=== PATIENT | female | born 1995 | race Caucasian/White ===

== ENCOUNTER 2021-01-11 16:33 | Emergency (ER) | payer BC, SELFPAY ==
[2021-01-11 16:39] VITALS: BP 120/86; PULSE 126; RESP 18; TEMP 38.8; O2SAT 99
[2021-01-11 16:53] LABS: Basophils Absolute Auto 0.1 K/mm3 (0.0-0.1); Basophils Percent Auto 0.5 % (0.2-1.2); Eosinophils Percent Auto 0.2 % (0-4.4); Hematocrit 42.9 % (37.0-47.0); Hemoglobin 14.2 g/dL (12.0-15.0); Immature Granulocyte Absolute 0.05 K/mm3 (0.00-0.031); Immature Granulocyte Percent A 0.5 % (0-0.5); Lymphocytes Absolute Auto 1.27 K/mm3 (0.9-3.2); Lymphocytes Percent Auto 11.5 % (18.3-44.2); Mean Corpuscular HGB Conc 33.1 g/dl (32-36); Mean Corpuscular Hemoglobin 29.7 pg (26-34); Mean Corpuscular Volume 89.7 fl (80-100); Monocytes Absolute Auto 1.1 K/mm3 (0.1-0.6); Neutrophils Absolute Auto 8.6 K/mm3 (1.3-6.7); Neutrophils Percent Auto 77.3 % (45.5-73.1); Platelet Count Result 254 k/mm3 (150-375); Red Blood Count 4.78 M/mm3 (4.2-5.4); Red Cell Distribution Width 12.1 % (11.5-14.5); White Blood Count 11.1 K/mm3 (4.5-10.0)
[2021-01-11 17:05] LABS: Alanine Aminotransferase 17 U/L (4-35); Albumin Level 4.7 g/dL (3.5-5.1); Alkaline Phosphatase 65 U/L (38-126); Anion Gap 11 mmol/L (8-16); Aspartate Amino Transferase 22 U/L (14-36); Bilirubin,Total 0.5 mg/dL (0.2-1.3); Blood Urea Nitrogen 9 mg/dL (7-17); Calcium 9.3 mg/dL (8.4-10.2); Carbon Dioxide 22 mmol/L (22-30); Chloride 104 mmol/L (98-107); Estimated CRCL calculation 72 ml/min; Estimated Glomerular Filt Rate > 60; Glucose 94 mg/dL (65-105); Potassium 4.1 mmol/L (3.4-5.0); Sodium 137 mmol/L (137-145)
[2021-01-11 19:49] VITALS: BP 141/91; PULSE 125; TEMP 39.6; O2SAT 100
[2021-01-11 20:15] VITALS: RESP 16
[2021-01-11] MEDS: SODIUM CHLORIDE 0.9% IV 1,000 ML 999 ML IV CONT ×2 (20:15→22:30)
[2021-01-11 21:09] LABS: Lactic Acid Reflex 0.8 mmol/L (0.7-2.1)
--- NOTE | 2021-01-11 21:18 | ED.GENADULT ---
HPI - General Adult General Chief complaint: Fever Stated complaint: fever/chills/sp tick bite Time Seen by Provider: 01/11/21 19:47 Source: patient, family and RN notes reviewed Mode of arrival: ambulatory Limitations: no limitations History of Present Illness HPI narrative: Patient is a 25-year-old female who presents to emergency department for evaluation of fever chills body aches arthralgias and neck pain that began today patient felt fine yesterday patient notes the only possible cause might be a tick bite to the right johnson that was 3 weeks ago patient denies any other wounds sores or sources of illness or sick contacts notes that she is fully vaccinated for Covid. Patient has not taken anything for her symptoms. Patient is nontoxic-appearing in no distress upon arrival Related Data Allergies Allergy/AdvReac Type Severity Reaction Status Date / Time Sulfa (Sulfonamide Allergy Rash Verified 01/11/21 20:08 Antibiotics) Review of Systems Review of Systems: All systems reviewed & are unremarkable except as noted in HPI and below PMFSH Social History Social History (Updated 01/11/21 @ 21:19 by Tony Baldwin PA-C) Smoking status: Never smoker Exam Narrative: Exam Narrative: GENERAL: Well-appearing, well-nourished, and in no acute distress. HEAD: Normocephalic, atraumatic. EYES: PERRLA and EOMI. ENT: Nares clear, no rhinorrhea or epistaxis. Mucous membranes moist. NECK: Supple. No adenopathy or masses. CHEST: Clear to auscultation. No respiratory distress. No wheezes rales or rhonchi HEART: Tachycardic rate and regular rhythm. No murmur heard. Normal peripheral pulses. ABDOMEN: Soft, nontender, nondistended, normal active bowel sounds. EXTREMITIES: Normal range of motion. No edema. SKIN: Warm, dry, no rash. Small nonerythematous area to the right johnson where the tick bite was located. No cellulitic changes no drainage no fluctuance no foreign bodies noted. NEURO: No focal deficits. Alert and oriented x3. Cranial nerves II through XII grossly intact PSYCH: Normal mood and affect. Course Course Emergency Course: Patient medicated in the emergency department feeling much better at this time will be discharged home with follow-up with primary care is afebrile nontoxic-appearing no distress ABCs and vital signs intact and stable Vital Signs Vital signs: Vital Signs Temperature 101.8 F H 01/11/21 16:39 Pulse Rate 126 H 01/11/21 16:39 Respiratory Rate 18 01/11/21 16:39 Blood Pressure 120/86 01/11/21 16:39 Pulse Oximetry 99 01/11/21 16:39 Temperature 100 F H 01/11/21 21:25 Pulse Rate 99 01/11/21 21:25 Respiratory Rate 15 01/11/21 21:25 Blood Pressure 113/61 01/11/21 21:25 Pulse Oximetry 99 01/11/21 21:25 Medical Decision Making MDM Narrative Medical decision making narrative: Patient in the room no distress will be placed on doxycycline given her story no other signs or symptoms concerning for other source at this time she is afebrile nontoxic-appearing and will follow with her primary care doctor Vital Signs Vital Signs: Vital Signs Temperature 101.8 F H 01/11/21 16:39 Pulse Rate 126 H 01/11/21 16:39 Respiratory Rate 18 01/11/21 16:39 Blood Pressure 120/86 01/11/21 16:39 Pulse Oximetry 99 01/11/21 16:39 Temperature 100 F H 01/11/21 21:25 Pulse Rate 99 01/11/21 21:25 Respiratory Rate 15 01/11/21 21:25 Blood Pressure 113/61 01/11/21 21:25 Pulse Oximetry 99 01/11/21 21:25 Lab Data Result diagrams: 01/11/21 16:47 01/11/21 16:47 Labs: Lab Results 01/11/21 01/11/21 01/11/21 Range/Units 16:47 16:47 20:22 WBC 11.1 H (4.5-10.0) K/mm3 RBC 4.78 (4.2-5.4) M/mm3 Hgb 14.2 (12.0-15.0) g/dL Hct 42.9 (37.0-47.0) % MCV 89.7 (80-100) fl MCH 29.7 (26-34) pg MCHC 33.1 (32-36) g/dl RDW 12.1 (11.5-14.5) % Plt Count 254 (150-375) k/mm3 MPV 9.0 (7.4-10.4) fl
[2021-01-11 21:25] VITALS: BP 113/61; PULSE 99; RESP 15; TEMP 37.7; O2SAT 99
[2021-01-11 22:25] LABS: Add Urine Microscopic? YES; Appearance Urine Clear (Clear); Bilirubin Urine Negative (Negative); Blood Urine Negative (Negative); Color Urine Yellow (Yellow); Glucose Urine UA Negative (Negative); Ketones Urine 2+ mg/dL (Negative); Leukocyte Esterase Ur Negative LEU/UL (Negative); Mucus Urine Heavy /lpf; Nitrate Urine Negative (Negative); Protein Urine 2+ mg/dL (Negative); Specific Grav Ur 1.029 (1.001-1.035); Squamous Epithelial Cell Urine Rare /hpf (Few); Urobilinogen Urine Negative mg/dL (<2.0); WBC Urine 0-3 /hpf
[2021-01-11 23:00] VITALS: TEMP 36.9
[2021-01-11] MEDS: IBUPROFEN IV 800 MG/200 ML 800 MG/200 ML BAG 400 MG IVPB (23:00)
== END 2021-01-12 00:43 | disposition home or self-care (01) ==
PROVIDERS: Emergency Medicine Emergency Medical Services; Emergency Provider Emergency Medicine; PCP Nurse Practitioner Adult Health
DX: R50.9 Fever, unspecified (principal)
CPT/HCPCS: 36415; 80053; 81001; 81025; 83605; 85025; 87040; 96365; 96367; 96375; 99284; J0131; J1741; J7030

== ENCOUNTER 2023-05-19 18:12 | Emergency (ER) | payer OTHER, SELFPAY ==
--- NOTE | 2023-05-19 18:31 | ED.LOWEXIN ---
HPI - Extremity Injury (Lower) General Chief Complaint: Extremity Injury, Lower Stated Complaint: Sprained Knee Time Seen by Provider: 05/19/23 18:31 Source: patient Mode of arrival: ambulatory Limitations: no limitations History of Present Illness HPI Narrative: Charisse is a 27-year-old female patient presenting to the clinic today with complaints possible knee sprain x2 months. She reports she is having lateral right knee pain when walking and at times when she steps down incorrectly. No swelling noted-has been resting icing and elevating Related Data Home Medications Medication Instructions Recorded Confirmed norethindrone 0.5 mg-ethinyl 1 tablet PO DAILY 05/19/23 05/19/23 estradiol 35 mcg tablet (Nortrel) Allergies Allergy/AdvReac Type Severity Reaction Status Date / Time Sulfa (Sulfonamide Allergy Rash Verified 05/19/23 18:37 Antibiotics) Review of Systems Review of Systems: Pertinent positives per HPI. Patient denies any fever, chills, rash, headache, visual changes, dizziness, cough, runny nose, sore throat, shortness of breath, chest pain, palpitations, nausea, vomiting, diarrhea, constipation, abdominal pain, or any urinary issues. PMFSH Social History Social History Smoking status: Never smoker Comments At the time of my signature, I reviewed and agree with the nursing past medical, surgical, social, and family history. There is no relevant family history pertinent to the patient complaint. Exam Narrative: General: Well-developed, well nourished, in no apparent distress Head: Normocephalic, atraumatic. Cardio: Regular rate and rhythm, s1 and s2 normal, no murmur appreciated. Resp: Clear to auscultation bilaterally, no rhonchi, rales, wheezing or rubs. Musculoskeletal: No deformity, tender to palpation over the right LCL, grossly normal range of motion, no crepitus, muscle strength strong and equal, peripheral pulse strong, no edema, no cyanosis, normal gait and station Course Course Emergency Course: Portions of this record may have been created with voice recognition software. Level of Care: Express Care Visit Vital Signs Vital signs: Vital signs reviewed MDM - Extremity Injury (Lower) MDM Narrative Medical decision making narrative: At the time of visit patient is resting comfortably on the exam table. I suspect patient has a right LCL sprain. Discussed using a hinged knee brace and Gilbert wrap as well as taking ibuprofen and applying Voltaren gel to the affected area. Supportive measures were discussed with the patient she voiced understanding discharge instructions agrees to treatment plan. Differential Diagnosis Differential diagnosis: Likely acute internal derangement of knee and other (Knee sprain, tibia fracture, femur fracture, soft tissue injury, contusion) Discharge Plan Discharge Clinical Impression: Knee LCL sprain Qualifiers: Encounter type: initial encounter Laterality: right Qualified Code(s): S83.421A - Sprain of lateral collateral ligament of right knee, initial encounter Patient Disposition: Home, Self-Care Condition: Stable Instructions: Antibiotic Form, Knee Sprain (ED) Additional Instructions: Rest, ice, elevate, and wear gilbert wrap as directed Tylenol/motrin for pain as discussed. Apply Voltaren gel to the affected area Gradually bear weight No running or sports until healed. Wear a hinged knee brace while up walking to help support your knee Follow up with your PCP if symptoms persist more than 1 week. May need MRI to rule out ligament tear Prescriptions: No Action Nortrel 0.5/35 (28) 0.5-35 mg-mcg Tablet 1 tablet PO DAILY Follow-up/Referrals: PHYSICIAN,SPECIAL ED ASSISTANT [Primary Care Provider] - Time of Disposition: 19:11 Quality NIHSS Nursing Documentation ED NIHSS nursing documentation: reviewed/agree
[2023-05-19 18:39] VITALS: BP 131/74; PULSE 70; RESP 16; TEMP 36.9; O2SAT 99
== END 2023-05-19 19:19 | disposition home or self-care (01) ==
PROVIDERS: Emergency Provider Nurse Practitioner Family
DX: S83.421A Sprain of lateral collateral ligament of right knee, initial encounter (principal); X58.XXXA Exposure to other specified factors, initial encounter
CPT/HCPCS: 99212; G0463